=== PATIENT | male | born 1970 | race Two or more races ===

== ENCOUNTER 2017-08-07 12:03 | Emergency (ER) | payer BC ==
[2017-08-07 12:52] VITALS: BP 114/75; PULSE 82; TEMP 97.6; BMI 31.1
--- NOTE | 2017-08-07 14:19 | PDOC ---
History of Present Illness - General Chief Complaint: Abscess Boil Stated Complaint: ABSCESS ON GUM Time Seen by Provider: 08/07/17 13:47 History Source: Patient Exam Limitations: No Limitations - History of Present Illness Initial Comments: 08/07/17 14:13 Patient is a 47-year-old male, no significant medical history currently on no medication presents with painful noted to upper right lateral jaw line. No fever, no respiratory difficulty, no pain on swallowing or inspiration Past Medical History: [Denies]. Allergies: No known allergies Medications: [] Family History: Non-contributory Social History: Denies smoking, alcohol use, or IVDU Vital signs on arrival are [notable for pulse of 96.] Review of Systems GENERAL/CONSTITUTIONAL: [No fever or chills. No weakness. No weight change.] HEAD, EYES, EARS, NOSE AND THROAT: [No change in vision. No ear pain or discharge. No sore throat. Painful mass at gumline above tooth #12 ] CARDIOVASCULAR: [No chest pain or shortness of breath.] RESPIRATORY: [No cough, wheezing, or hemoptysis.] GASTROINTESTINAL: [No nausea, vomiting, diarrhea or constipation. No rectal bleeding.] GENITOURINARY: [No dysuria, frequency, or change in urination.] MUSCULOSKELETAL: [No joint or muscle swelling or pain. No neck or back pain.] SKIN AND BREASTS: [No rash or easy bruising.] NEUROLOGIC: [No headache, vertigo, loss of consciousness, or loss of sensation.] PSYCHIATRIC: [No depression or anxiety.] ENDOCRINE: [No increased thirst. No abnormal weight change.] HEMATOLOGIC/LYMPHATIC: [No anemia, easy bleeding, or history of blood clots.] ALLERGIC/IMMUNOLOGIC: [No hives or skin allergy. No latex allergy.] Physical Exam: GENERAL: [The patient is awake, alert, and fully oriented, in no acute distress. ] EYES: [Pupils equal, round and reactive to light, extraocular movements intact, sclera anicteric, conjunctiva clear.] ENT: [Ears normal, nares patent, oropharynx clear without exudates. Moist mucous membranes. No uvula deviation. Painful mass at gumline above tooth #12 area of fluctuance. ] NECK: [Normal range of motion, supple without lymphadenopathy, JVD, or masses.] LUNGS: [Breath sounds equal, clear to auscultation bilaterally. No wheezes, and no crackles.] HEART: [Regular rate and rhythm, normal S1 and S2 without murmur, rub or gallop. ] ABDOMEN: [Soft, nontender, normoactive bowel sounds. No guarding, no rebound. No masses. No bruising or abrasions] MUSCULOSKELETAL: [Normal range of motion, no edema. No clubbing or cyanosis. No cords, erythema, or tenderness. No CVA Tenderness with fist.] NEUROLOGICAL: [Cranial nerves II through XII grossly intact. Normal speech, normal gait.] SKIN: [Warm, Dry, normal turgor, no rashes or lesions noted.] Past History - Past Medical History Allergies/Adverse Reactions: Allergies Allergy/AdvReac Type Severity Reaction Status Date / Time Penicillins Allergy Verified 08/07/17 12:47 Home Medications: Ambulatory Orders Chlorhexidine Gluconate [Peridex -] 15 ml MM BID #1 bottle 08/07/17 Clindamycin [Cleocin -] 300 mg PO TID #30 capsule 08/07/17 Ibuprofen [Motrin -] 600 mg PO TID #21 tablet 08/07/17 Asthma: Yes COPD: No DVT: No Dementia: No - Immunization History Immunization Up to Date: Yes - Suicide/Smoking/Psychosocial Hx Smoking History: Never smoked Have you smoked in the past 12 months: No Information on smoking cessation initiated: No Hx Alcohol Use: No Drug/Substance Use Hx: No Substance Use Type: None *Physical Exam - Vital Signs Last Vital Signs Temp Pulse Resp BP Pulse Ox 97.6 F 82 75 H 114/75 97 08/07/17 12:48 08/07/17 12:48 08/07/17 12:48 08/07/17 12:48 08/07/17 12:48 Medical Decision Making - Medical Decision Making 08/07/17 14:19 A/P: Patient with abscess of the gumline above tooth #12. Area cleansed with normal saline, 1% lidocaine injected into area with good result. Small puncture wound placed using a 15 blade with good result 3 mL of pustular drainage removed. Patient reports immediate relief of pain will follow-up with dental started on clindamycin, Motrin for pain. No active bleeding noted after drainage. *DC/Admit/Observation/Transfer Diagnosis at time of Disposition: Dental abscess - Discharge Dispostion Disposition: HOME Condition at time of disposition: Stable Admit: No - Prescriptions Prescriptions: Chlorhexidine Gluconate [Peridex -] 15 ml MM BID #1 bottle Clindamycin [Cleocin -] 300 mg PO TID #30 capsule Ibuprofen [Motrin -] 600 mg PO TID #21 tablet - Referrals - Patient Instructions Printed Discharge Instructions: Tooth Abscess Additional Instructions: Warm salt water gargles. Antibiotics as ordered Recommend follow up with dentla in the next 24-48 hours. If any fever, facial swelling, difficulty swallowing or other concerns return to the ER. - Post Discharge Activity Forms/Work/School Notes: Back to Work
== END 2017-08-07 14:37 | disposition home or self-care (01) ==
LOC: JERFT 12:03
PROC: 0C950ZZ Drainage of Upper Gingiva, Open Approach (ICD-10-PCS; principal; 2017-08-07)
DX: K04.7 Periapical abscess without sinus (principal)
CPT/HCPCS: 99281-25

== ENCOUNTER 2018-12-19 22:51 | Emergency (ER) | payer BC ==
[2018-12-19 22:56] VITALS: BMI 31.1
--- NOTE | 2018-12-19 23:05 | PDOC ---
History of Present Illness - General Chief Complaint: Allergic Reaction Stated Complaint: ALLERGIC REACTION Time Seen by Provider: 12/19/18 23:04 - History of Present Illness Initial Comments: 12/19/18 23:42 The patient is a 48 year old male with a history of asthma who presents for evaluation of an allergic reaction. The patient reports that he was eating shrimp fettuccine and 20 minutes after began experiencing facial swelling with nasal congestion, difficulty breathing, and whole body itching prompting him to call EMS. He received epinephrine from EMS with improvement in his symptoms. On presentation to the ED, the patient continues to report facial swelling but notes that his symptoms have significantly improved. He denies having allergic reactions in the past and otherwise denies fevers, chills, chest pain, nausea, vomiting, abdominal pain, rashes, or changes with urination or bowel movements. Past History - Past Medical History Allergies/Adverse Reactions: Allergies Allergy/AdvReac Type Severity Reaction Status Date / Time Penicillins Allergy Verified 12/19/18 22:56 Home Medications: Ambulatory Orders Albuterol 2.5/Ipratropium 0.5 [Duoneb -] 1 amp NEB PRN PRN 12/19/18 Epinephrine [Epipen 2-Abelino] 0.3 mg IJ ASDIR #1 kit 12/20/18 Asthma: Yes COPD: No DVT: No Dementia: No - Immunization History Immunization Up to Date: Yes - Suicide/Smoking/Psychosocial Hx Smoking History: Unknown if ever smoked Have you smoked in the past 12 months: No Hx Alcohol Use: No Drug/Substance Use Hx: No Substance Use Type: None Review of Systems - Review of Systems Comments:: 12/19/18 23:44 Constitutional: No fevers, chills, fatigue, malaise HEENT: Rhinorrhea, nasal congestion, Facial swelling. No visual changes Cardiovascular: No chest pain, syncope, palpitations, lightheadedness Respiratory: Difficulty breathing. No Cough, Hemoptysis, Gastrointestinal: No Abdominal pain, Nausea, Vomiting, Constipation, Diarrhea, Melena Genitourinary: No Dysuria, Frequency, Urgency, Hesitancy, Hematuria, Flank pain Musculoskeletal: No Myalgia, arthralgia Skin: Itching. No rashes, bruising, pallor Neurologic: No Headache, Dizziness, Numbness, Weakness, or Tingling Psychiatric: No Hallucinations. No SI or HI *Physical Exam - Vital Signs Last Vital Signs Temp Pulse Resp BP Pulse Ox 98.3 F 84 18 123/74 97 12/19/18 22:54 12/19/18 22:54 12/19/18 22:54 12/19/18 22:54 12/19/18 22:54 - Physical Exam Comments: 12/19/18 23:45 General Appearance: Nourished. No Apparent Distress HEENT: EOMI, LIZ. Edematous uvula noted on exam. No Pharyngeal Erythema, Tonsillar Exudate, Tonsillar Erythema Neck: No Cervical Lymphadenopathy Respiratory/Chest: Lungs Clear, Normal Breath Sounds. No Crackles, Rales, Rhonchi, Wheezing Cardiovascular: Regular Rhythm, Regular Rate. No Murmur, Gallops, Rubs Gastrointestinal/Abdominal: Normal Bowel Sounds, Soft. No Guarding, Rebound, Tenderness Musculoskeletal: No CVA Tenderness Extremity: Normal Capillary Refill Integumentary: Normal Color, Dry, Warm Neurologic: Fully Oriented, Alert, Normal Mood/Affect, Normal Response, Medical Decision Making - Medical Decision Making 12/19/18 23:45 The patient is a 48 year old male with a history of asthma who presents for evaluation of an allergic reaction. Given the patient's history and physical exam, it is likely the patient's symptoms were due to an anaphylaxis reaction. We will treat with benadryl, pepcid, solu-medrol and continue to monitor and reassess while here in the ED. The patient will need to be observed for a minimum of 6 hours here in the ED. 12/20/18 02:00 Patient signed out to Dr. Sams with the night team pending reassessment, further monitoring, and dispo. *DC/Admit/Observation/Transfer Diagnosis at time of Disposition: Allergic reaction Qualifiers: Encounter type: initial encounter Qualified Code(s): T78.40XA - Allergy, unspecified, initial encounter - Discharge Dispostion Disposition: HOME - Prescriptions Prescriptions: Epinephrine [Epipen 2-Abelino] 0.3 mg IJ ASDIR #1 kit - Referrals Referrals: Danny Kan MD [Non Staff, Medical] - - Patient Instructions Printed Discharge Instructions: DI for General Allergic Reactions Additional Instructions: You were evaluated today in the ER and found to have a severe allergic reaction. We observed you in the ER and sent a prescription to your pharmacy for an epi-pen as well as gave you [employer] follow-up. Please make an appointment for allergy testing as soon as possible. Return to ER if any return of swelling, shortness of breath, or other concerning symptoms. - Post Discharge Activity
[2018-12-19] MEDS ORDERED: methylPREDNISolone NA SUCC 125 MG/2 ML VIAL IVPUSH ONE (23:23)
[2018-12-19] MEDS ORDERED: FAMOTIDINE 20 MG/50 ML IVPB 20 MG/50 ML MG IVPB ONE ×2 (23:23→23:36)
--- NOTE | 2018-12-19 23:28 | PDOC ---
Documentation entered by Misael Frye SCRIBE, acting as scribe for Kathy Saleh MD. Kathy Saleh MD: This documentation has been prepared by the scribe, Misael Frye SCRIBE, under my direction and personally reviewed by me in its entirety. I confirm that the documentation accurately reflects all work, treatment, procedures, and medical decision making performed by me. Attending Attestation - Resident Resident Name: Ruben Lowe - ED Attending Attestation I have performed the following: I have examined & evaluated the patient, The case was reviewed & discussed with the resident, I agree w/resident's findings & plan, Exceptions are as noted - HPI HPI: 12/19/18 23:33 The patient is a 48 year old male with a significant past medical history of asthma who presents to the emergency department with an allergic reaction since earlier today. The patient states that he was out this evening eating shrimp and pasta when he subsequently to have a reaction about 20 minutes later. The patient endorses some associated facial swelling, congestion and trouble breathing. It is noted that the patient was given epi en route to the ED. He states that he was not eating anything that he never ate before. He denies any chest pain. The patient denies any other symptoms or complaints. - Physicial Exam PE: GENERAL: Awake, alert, and fully oriented, in no acute distress HEAD: No signs of trauma EYES: PERRLA, EOMI, sclera anicteric, conjunctiva clear. +L lower eyelid edema, no erythema, no drainage ENT: Auricles normal inspection, hearing grossly normal, nares patent, oropharynx clear without exudates. +Mod edema of the uvula. Normal phonation. Moist mucosa NECK: Normal ROM, supple, no lymphadenopathy, JVD, or masses LUNGS: Breath sounds equal, clear to auscultation bilaterally. No wheezes, and no crackles HEART: Regular rate and rhythm, normal S1 and S2, no murmurs, rubs or gallops ABDOMEN: Soft, nontender, normoactive bowel sounds. No guarding, no rebound. No masses EXTREMITIES: Normal range of motion, no edema. No clubbing or cyanosis. No cords, erythema, or tenderness NEUROLOGICAL: Cranial nerves II through XII grossly intact. Normal speech, normal gait. Motor and sensation intact SKIN: Warm, Dry, normal turgor, no rashes or lesions noted. - Medical Decision Making 12/19/18 23:27 Pt received via EMS, arrived after he had an allergic reaction after eating shrimp fettuccine (he has no prior history of known allergies), given epi en route with significant improvement. He has slight swelling of the L lower eyelid , but also has swelling of the uvula. Will give IV steroids, benadryl, and pepcid and monitor for at least 6 hours. If uvula does not improve, will either monitor longer or place on observation. If he is ultimately discharged, will send with rx for epi-pen and f/u with salesperson books for eventual skin testing.
[2018-12-19] MEDS ORDERED: methylPREDNISolone NA SUCC 125 MG/2 ML VIAL ONE (23:36)
--- NOTE | 2018-12-20 01:46 | PDOC ---
*Physical Exam - Vital Signs Last Vital Signs Temp Pulse Resp BP Pulse Ox 98 F 81 18 119/70 98 12/19/18 23:10 12/19/18 23:10 12/19/18 23:10 12/19/18 23:10 12/19/18 23:10 ED Treatment Course - Medications Given in the ED: ED Medications Discontinued Medications Generic Name Dose Route Start Last Admin Trade Name Mohit PRN Reason Stop Dose Admin Diphenhydramine HCl 25 mg 12/19/18 23:23 12/19/18 23:50 Benadryl Injection - IVPUSH 12/19/18 23:24 25 mg ONCE ONE Administration Famotidine/Sodium Chloride 20 mg in 50 mls @ 100 mls/hr 12/19/18 23:23 23:50 Pepcid 20 Mg Premixed Ivpb - IVPB 12/19/18 23:52 100 mls/hr ONCE ONE Administration Methylprednisolone Sodium Succinate 125 mg 12/19/18 23:23 12/19/18 23:51 Solu-Medrol - IVPUSH 12/19/18 23:24 125 mg ONCE ONE Administration Medical Decision Making - Medical Decision Making 12/20/18 01:[address] Lowe. Patient is a 48 yo male w/ pmh of asthma who presents w/ allergic reaction to unknown agent. Patient has received epi (en route), steroids, pepcid, and benadryl. Currently pending repeat evaluation for disposition. 12/20/18 03:12 Patient exam significant for mildly improved uvular exam however still enlarged. Patient will remain in ED for further observation. 12/20/18 05:09 Patient exam continues to improve. Patient evaluated with CT neck to ensure patency of airway w/ no concerning findings. Discharging patient w/ Rx for epi- pen and allergy FU. *DC/Admit/Observation/Transfer Diagnosis at time of Disposition: Allergic reaction Qualifiers: Encounter type: initial encounter Qualified Code(s): T78.40XA - Allergy, unspecified, initial encounter - Discharge Dispostion Disposition: HOME - Referrals Referrals: Danny Kan MD [Non Staff, Medical] - - Patient Instructions Printed Discharge Instructions: DI for General Allergic Reactions Additional Instructions: You were evaluated today in the ER and found to have a severe allergic reaction. We observed you in the ER and sent a prescription to your pharmacy for an epi-pen as well as gave you [employer] follow-up. Please make an appointment for allergy testing as soon as possible. Return to ER if any return of swelling, shortness of breath, or other concerning symptoms. - Post Discharge Activity
[2018-12-20 05:34] VITALS: BP 108/73; PULSE 69; TEMP 97.3
--- NOTE | 2018-12-20 05:35 | PDOC ---
*Physical Exam - Vital Signs Last Vital Signs Temp Pulse Resp BP Pulse Ox 97.3 F L 69 18 108/73 95 12/20/18 05:33 12/20/18 05:33 12/20/18 05:33 12/20/18 05:33 12/20/18 05:33 ED Treatment Course - Medications Given in the ED: ED Medications Discontinued Medications Generic Name Dose Route Start Last Admin Trade Name Mohit PRN Reason Stop Dose Admin Diphenhydramine HCl 25 mg 12/19/18 23:23 12/19/18 23:50 Benadryl Injection - IVPUSH 12/19/18 23:24 25 mg ONCE ONE Administration Famotidine/Sodium Chloride 20 mg in 50 mls @ 100 mls/hr 12/19/18 23:23 23:50 Pepcid 20 Mg Premixed Ivpb - IVPB 12/19/18 23:52 100 mls/hr ONCE ONE Administration Methylprednisolone Sodium Succinate 125 mg 12/19/18 23:23 12/19/18 23:51 Solu-Medrol - IVPUSH 12/19/18 23:24 125 mg ONCE ONE Administration Medical Decision Making - Medical Decision Making 12/20/18 05:35 Patient Name: GEOVANNA CORRAL THIS IS A PRELIMINARY REPORT FROM [facility] DATE OF SERVICE: 2018-12-20 04:38:47 IMAGES: [id number] EXAM: SOFT TISSUE NECK CT W/O CONTR HISTORY: Evaluate airway patency COMPARISON: None. FINDINGS: The visualized intracranial and orbital contents are normal. The visualized paranasal sinuses and mastoid air cells are well aerated other than bilateral maxillary sinus retention cysts or polyps and minimal mucosal thickening. The airway is patent. Normal epiglottis and vocal cords. No parapharyngeal or retropharyngeal space edema. No abscess mass or suspicious adenopathy. Lung apices are clear. IMPRESSION: No acute pathology Pt will go home with epi pen. *DC/Admit/Observation/Transfer Diagnosis at time of Disposition: Allergic reaction Qualifiers: Encounter type: initial encounter Qualified Code(s): T78.40XA - Allergy, unspecified, initial encounter - Discharge Dispostion Disposition: HOME - Prescriptions Prescriptions: Epinephrine [Epipen 2-Abelino] 0.3 mg IJ ASDIR #1 kit - Referrals Referrals: Danny Kan MD [Non Staff, Medical] - - Patient Instructions Printed Discharge Instructions: DI for General Allergic Reactions Additional Instructions: You were evaluated today in the ER and found to have a severe allergic reaction. We observed you in the ER and sent a prescription to your pharmacy for an epi-pen as well as gave you [employer] follow-up. Please make an appointment for allergy testing as soon as possible. Return to ER if any return of swelling, shortness of breath, or other concerning symptoms. - Post Discharge Activity
== END 2018-12-20 05:33 | disposition home or self-care (01) ==
LOC: JER 22:51
PROC: 3E033GC Introduction of Other Therapeutic Substance into Peripheral Vein, Percutaneous Approach (ICD-10-PCS; principal; 2018-12-19)
PROC: 3E033GC Introduction of Other Therapeutic Substance into Peripheral Vein, Percutaneous Approach (ICD-10-PCS; 2018-12-19)
PROC: 3E0333Z Introduction of Anti-inflammatory into Peripheral Vein, Percutaneous Approach (ICD-10-PCS; 2018-12-19)
DX: T78.1XXA Other adverse food reactions, not elsewhere classified, initial encounter (principal); Z91.013 Allergy to seafood
CPT/HCPCS: 70490-TC; 99283-25